=== PATIENT | female | born 1990 | race Caucasian/White ===

== ENCOUNTER 2019-10-17 06:33 | Inpatient (IN) | payer OTHER ==
[~2019-10-17] VITALS: Ht 165.1 cm; Wt 2.7 kg
[2019-10-17] MEDS ORDERED: PRENATAL TABLE1 EAC1 PO (06:41)
[2019-10-17] MEDS ORDERED: IRON236 MG PO (06:42)
[2019-10-17] MEDS ORDERED: B12 ACTIVE1000 MCG PO (06:43)
[2019-10-17] MEDS ORDERED: NIFEDIPINE10 MG PO (06:44)
== END 2019-10-20 11:03 | disposition home or self-care (01) | DRG 788 ==
LOC: LDR 06:33 → SURG-SUITE 19:53
PROVIDERS: ADMIT Specialist; ATTEND Specialist
PROC: 3E033VJ Introduction of Other Hormone into Peripheral Vein, Percutaneous Approach (ICD-10-PCS; 2019-10-17)
PROC: 4A1HXCZ Monitoring of Products of Conception, Cardiac Rate, External Approach (ICD-10-PCS; 2019-10-17)
PROC: 10D00Z1 Extraction of Products of Conception, Low, Open Approach (ICD-10-PCS; principal; 2019-10-17 17:15)
DX: O65.8 Obstructed labor due to other maternal pelvic abnormalities (principal); Z3A.38 38 weeks gestation of pregnancy; Z37.0 Single live birth